=== PATIENT | female | born 1950 | race Caucasian/White ===

== ENCOUNTER 2017-06-18 12:04 | Observation (INO) | payer MEDICARE, MEDICAID ==
[~2017-06-18] VITALS: Ht 154.9 cm; Wt 78.4 kg
[2017-06-18] MEDS ORDERED: LANS30TA6 PO (12:58)
[2017-06-18] MEDS ORDERED: GABA300C10 PO (12:58)
[2017-06-18] MEDS ORDERED: ATOR-2 PO (12:58)
[2017-06-18] MEDS ORDERED: EMPA10TA PO (12:58)
[2017-06-18] MEDS ORDERED: INSU100V8 SQ (12:58)
[2017-06-18] MEDS ORDERED: LOSA50TA6 PO (12:58)
[2017-06-18] MEDS ORDERED: TRAM100T2 PO (12:58)
[2017-06-18 13:10] VITALS: BP 115/65
[2017-06-18 13:27] LABS: BASOPHILS # (AUTO) 0.03 x10^3/uL (0-0.1); BASOPHILS % (AUTO) 0 % (0-1); EOSINOPHILS # (AUTO) 0.08 x10^3/uL (0-0.4); EOSINOPHILS % (AUTO) 1 % (1-7); LYMPHOCYTES # (AUTO) 2.14 x10^3/uL (1-3.4); LYMPHOCYTES % (AUTO) 20 % (22-44); MD NO; MEAN CORPUSCULAR HEMOGLOBIN 30.8 pg (27.0-34.8); MEAN CORPUSCULAR HGB CONC 33.5 g/dL (32.4-35.8); MEAN PLATELET VOLUME 8.6 fL (7.4-10.4); MONOCYTES % (AUTO) 5 % (2-9); NEUTROPHILS # (AUTO) 7.76 x10^3/uL (1.8-6.8); NEUTROPHILS % (AUTO) 74 % (42-75); PLATELET COUNT 337 x10^3/uL (130-400); RED BLOOD COUNT 4.59 x10^6/uL (3.82-5.3); RED CELL DISTRIBUTION WIDTH 12.8 % (9.6-15.2)
[2017-06-18] MEDS ORDERED: SODIUM CHLORIDE 0.9% 1,000 ML IV ONE (13:30)
[2017-06-18 13:36] LABS: ANION GAP 9 mmol/L (5-15); CALCIUM 9.2 mg/dL (8.5-10.1); CHLORIDE 107 mmol/L (98-107); CREATININE 1.21 mg/dL (0.55-1.02)
[2017-06-18] MEDS ORDERED: VISIPAQUE 270 MG/ML, 150ML BOTTLE ONE ×2 (13:51→14:00)
[2017-06-18 13:53] LABS: INTERNATIONAL NORMALIZED RATIO 0.94 (0.93-1.1); PROTHROMBIN TIME 9.8 Seconds (9.6-11.5)
[2017-06-18] MEDS ORDERED: HEPARIN 1,000 UNITS/ML, 10ML ONE ×2 (14:46→16:51)
[2017-06-18] MEDS ORDERED: FENTANYL PF 100 MCG/2ML ONE ×2 (14:46)
[2017-06-18] MEDS ORDERED: MIDAZOLAM 1 MG/ML, 5ML ONE (14:46)
[2017-06-18] MEDS ORDERED: NITROGLYCERIN 5 MG/ML, 10ML ONE (14:48)
[2017-06-18] MEDS ORDERED: LIDOCAINE 2%, 20ML ONE (14:48)
[2017-06-18] MEDS ORDERED: DIPHENHYDRAMINE 50 MG/ML, 1ML ONE (17:04)
[2017-06-18] MEDS ORDERED: CLOPIDOGREL 300 MG TABLET ONE (17:37)
[2017-06-18] MEDS ORDERED: PLEASE ENTER ALLERGIES MC SCH ×2 (19:00→20:30)
[2017-06-18 19:25] VITALS: BP 129/70
[2017-06-18] MEDS ORDERED: morphine SULFATE 10 MG/ML, 1ML IVPush PRN (20:30)
[2017-06-18] MEDS ORDERED: ONDANSETRON 2MG/ML, 2ML IVPush PRN (20:30)
[2017-06-18] MEDS ORDERED: ACETAMINOPHEN 325 MG TABLET PO PRN (21:00)
[2017-06-18] MEDS ORDERED: ZOLPIDEM 5MG TABLET PO PRN (21:00)
[2017-06-18] MEDS ORDERED: ATORVASTATIN 80 MG TABLET PO SCH (21:00)
[2017-06-18] MEDS: SODIUM CHLORIDE 0.9% 1,000 ML IV SCH (21:51)
[2017-06-18] MEDS: GABAPENTIN 300 MG CAPSULE PO SCH (23:11)
[2017-06-19 00:30] VITALS: BP 126/75
[2017-06-19 04:26] VITALS: BP 108/50
[2017-06-19] MEDS ORDERED: ASPIRIN 81 MG TABLET EC PO SCH (06:00)
[2017-06-19] MEDS ORDERED: PANTOPROZOLE 40MG TABLET PO SCH (07:30)
[2017-06-19] MEDS: GABAPENTIN 300 MG CAPSULE PO SCH (07:42)
[2017-06-19] MEDS: SODIUM CHLORIDE 0.9% 1,000 ML IV SCH (07:42)
[2017-06-19] MEDS ORDERED: EMPAGLIFLOZIN 10 MG HOMEMEDPO SCH (08:00)
[2017-06-19] MEDS ORDERED: LOSARTAN 50MG TABLET PO SCH (09:00)
[2017-06-19] MEDS ORDERED: CLOPIDOGREL 75 MG TABLET PO SCH (09:00)
[2017-06-19 09:06] VITALS: BP 130/77
[2017-06-19] MEDS ORDERED: CLOP75TA PO (10:52)
[2017-06-19 10:56] VITALS: BP 124/68
[2017-06-19] MEDS ORDERED: INSULIN DETEMIR 100 UNITS/ML, PEN SQ-INSULIN SCH (21:00)
== END 2017-06-19 11:12 | disposition home or self-care (01) ==
LOC: OUT 12:04 → 4NOR 18:23 → OUT 22:37 → DCLOUNGE 06-19 10:33
PROVIDERS: ADMIT Internal Medicine Interventional Cardiology; ATTEND Internal Medicine Interventional Cardiology
DX: I74.3 Embolism and thrombosis of arteries of the lower extremities (principal); I25.10 Atherosclerotic heart disease of native coronary artery without angina pectoris; E78.5 Hyperlipidemia, unspecified; E11.9 Type 2 diabetes mellitus without complications; I73.9 Peripheral vascular disease, unspecified; Z87.891 Personal history of nicotine dependence
CPT/HCPCS: 36415; 37221; 37225; 75630; 80048; 85025; 85347; 85610; 99156; 99157; C1714; C1725; C1760; C1769; C1876; C1884; C1894; C2623; G0378; J1200; J1644; J2250; J3010; J3490; J7030; Q9966; 37226

== ENCOUNTER 2017-10-28 09:13 | Inpatient (IN) | payer MEDICARE, MEDICAID ==
[~2017-10-28] VITALS: Ht 154.9 cm; Wt 82.6 kg
[~2017-10-28 09:13] MED LIST: ATOR-2 PO; CLOP75TA PO; EMPA10TA PO; GABA300C10 PO; INSU100V8 SQ; LANS30TA6 PO; LOSA50TA6 PO; TRAM100T33 PO
[2017-10-28 10:24] VITALS: BP 180/89
[2017-10-28] MEDS ORDERED: ESOM20CA57 PO (10:33)
[2017-10-28 11:29] LABS: ALBUMIN 3.3 g/dL (3.4-5.0); CALCIUM 8.4 mg/dL (8.5-10.1)
[2017-10-28] MEDS ORDERED: CHLORHEXIDINE 15 ML BOTTLE MM SCH (11:30)
[2017-10-28] MEDS ORDERED: DO NOT GIVE MC SCH (11:30)
[2017-10-28] MEDS ORDERED: INSULIN LISPRO 100 UNITS/ML, PEN SQ-INSULIN SCH (11:30)
[2017-10-28] MEDS ORDERED: DO NOT GIVE XX SCH (11:30)
[2017-10-28 11:31] LABS: ALANINE AMINOTRANSFERASE 26 U/L (12-78); BILIRUBIN,TOTAL 0.4 mg/dL (0.2-1.0); CREATININE 0.96 mg/dL (0.55-1.02)
[2017-10-28] MEDS ORDERED: ASPI81TA50 PO (11:49)
[2017-10-28] MEDS ORDERED: CARV6.25 PO (11:49)
[2017-10-28 11:55] LABS: BASOPHILS # (AUTO) 0.08 x10^3/uL (0-0.1); BASOPHILS % (AUTO) 1 % (0-1); EOSINOPHILS # (AUTO) 0.17 x10^3/uL (0-0.4); EOSINOPHILS % (AUTO) 2 % (1-7); LYMPHOCYTES # (AUTO) 2.93 x10^3/uL (1-3.4); LYMPHOCYTES % (AUTO) 29 % (22-44); MD NO; MEAN CORPUSCULAR HEMOGLOBIN 30.2 pg (27.0-34.8); MEAN CORPUSCULAR HGB CONC 33.5 g/dL (32.4-35.8); MEAN CORPUSCULAR VOLUME 90.4 fL (80-100); MEAN PLATELET VOLUME 8.6 fL (7.4-10.4); MONOCYTES # (AUTO) 0.56 x10^3/uL (0.2-0.8); MONOCYTES % (AUTO) 6 % (2-9); NEUTROPHILS # (AUTO) 6.44 x10^3/uL (1.8-6.8); NEUTROPHILS % (AUTO) 63 % (42-75); PLATELET COUNT 260 x10^3/uL (130-400); RED BLOOD COUNT 4.48 x10^6/uL (3.82-5.3); RED CELL DISTRIBUTION WIDTH 13.6 % (9.6-15.2)
[2017-10-28 12:03] LABS: ALKALINE PHOSPHATASE 129 U/L (45-117); ANION GAP 10 mmol/L (5-15); CHLORIDE 108 mmol/L (98-107)
[2017-10-28 12:04] LABS: INTERNATIONAL NORMALIZED RATIO 0.93 (0.93-1.1); PROTHROMBIN TIME 9.7 Seconds (9.6-11.5)
[2017-10-28 12:36] LABS: HEMOGLOBIN A1C 8.9 % (4.2-6.3)
[2017-10-28] MEDS ORDERED: HEPARIN 25,000 UNITS/500ML PMX 500 ML IV PRN ×2 (14:00→14:30)
[2017-10-28] MEDS ORDERED: HEPARIN 5,000 UNITS/ML, 1ML IV PRN (14:30)
[2017-10-28] MEDS ORDERED: HEPARIN 5,000 UNITS/ML, 1ML IV ONE (14:30)
[2017-10-28 14:49] LABS: MICROSCOPIC INDICATED
[2017-10-28] MEDS: GABAPENTIN 300 MG CAPSULE PO SCH ×2 (15:15→19:56)
[2017-10-28] MEDS: ATORVASTATIN 80 MG TABLET PO SCH (19:57)
[2017-10-28] MEDS ORDERED: CARVEDILOL 6.25 MG TABLET PO SCH (21:00)
[2017-10-28] MEDS ORDERED: SULFAMETH./TRIMETHOPRIM DS 800MG/160MG TABLET PO SCH (21:00)
[2017-10-28] MEDS ORDERED: SODIUM CHLORIDE FLUSH 10ML SYR IVF SCH (21:00)
[2017-10-28 21:14] VITALS: BP 157/75
[2017-10-28] MEDS: MUPIROCIN OINT 2%, 22GM TP SCH (21:17)
[2017-10-29] MEDS ORDERED: ALBUMIN HUMAN 5% 500 ML IV PRN (01:30)
[2017-10-29 03:49] VITALS: BP 124/60
[2017-10-29 03:54] VITALS: BP 116/68
[2017-10-29] MEDS: MUPIROCIN OINT 2%, 22GM TP SCH (04:47)
[2017-10-29] MEDS ORDERED: METOPROLOL TARTRATE 25 MG TABLET PO ONE (05:00)
[2017-10-29] MEDS ORDERED: VANCOMYCIN 1,000 MG in SODIUM CHLORIDE 0.9% 100 ML IVPB ONE (06:00)
[2017-10-29] MEDS ORDERED: SUFentanil 50 MCG/ML, 5ML ONE (07:12)
[2017-10-29] MEDS ORDERED: MIDAZOLAM 10MG/2 ML ONE ×2 (07:12)
[2017-10-29] MEDS ORDERED: PAPAVERINE 30 MG/ML, 2ML ONE ×2 (07:17→07:26)
[2017-10-29] MEDS ORDERED: HEPARIN 1,000 UNITS/ML, 10ML ONE (07:17)
[2017-10-29] MEDS ORDERED: EPINEPHRINE 2 MG in SODIUM CHLORIDE 0.9% 248 ML IV SCH (07:30)
[2017-10-29] MEDS ORDERED: PHENYLEPHRINE 10 MG in SODIUM CHLORIDE 0.9% 249 ML IV PRN ×2 (07:30→11:30)
[2017-10-29] MEDS: PANTOPROZOLE 40MG TABLET PO SCH (07:30)
[2017-10-29] MEDS ORDERED: CEFUROXIME 1.5 GM in SODIUM CHLORIDE 0.9% 50 ML IVPB PRN (07:30)
[2017-10-29] MEDS ORDERED: DEXMEDETOMIDINE 200 MCG in SODIUM CHLORIDE 0.9% 48 ML IV SCH (07:30)
[2017-10-29] MEDS ORDERED: REGULAR INSULIN 62.5 UNITS in SODIUM CHLORIDE 0.9% 249.375 ML IV PRN ×2 (07:30→11:30)
[2017-10-29] MEDS ORDERED: MANNITOL PMX 20% 500 ML IVPB PRN (07:30)
[2017-10-29] MEDS ORDERED: POTASSIUM CHLORIDE 80 MEQ, SODIUM BICARBONATE 8.4% 10 MEQ, MAGNESIUM SULFATE 0.5 GM, LI... IV PRN (07:30)
[2017-10-29] MEDS ORDERED: LOSARTAN 50MG TABLET PO SCH (09:00)
[2017-10-29] MEDS: DOCUSATE 100 MG CAPSULE PO SCH ×2 (09:00→19:55)
[2017-10-29] MEDS ORDERED: PAPAVERINE 30 MG/ML, 2ML IVPush ONE (09:25)
[2017-10-29] MEDS ORDERED: HEPARIN 1,000 UNITS/ML, 10ML IV ONE (09:32)
[2017-10-29] MEDS ORDERED: ROCURONIUM 10MG/ML,5ML ONE ×2 (10:32)
[2017-10-29] MEDS ORDERED: PROPOFOL 10 MG/ML, 20ML ONE ×2 (10:32)
[2017-10-29] MEDS ORDERED: AMINOCAPROIC ACID 250 MG/ML, 20ML ONE ×2 (10:32)
[2017-10-29] MEDS ORDERED: PROTAMINE SULFATE 10 MG/ML, 25ML ONE ×2 (10:32)
[2017-10-29] MEDS ORDERED: CALCIUM CHLORIDE 10%, 10ML SYR ONE (11:08)
[2017-10-29] MEDS ORDERED: ALBUTEROL HFA 90 MCG/SPRAY ONE (11:21)
[2017-10-29] MEDS ORDERED: MIDAZOLAM 1 MG/ML, 5ML IVPush PRN (11:30)
[2017-10-29] MEDS ORDERED: ONDANSETRON 2MG/ML, 2ML IVPush PRN (11:30)
[2017-10-29] MEDS: KSCALE TO 4.5 IV SCH ×3 (11:30→23:30)
[2017-10-29] MEDS ORDERED: DEXTROSE 50%, 50ML SYRINGE IVPush PRN (11:30)
[2017-10-29] MEDS ORDERED: GLUCAGON 1 MG IM PRN (11:30)
[2017-10-29] MEDS ORDERED: INSULIN REGULAR 100 UNITS/ML, 3ML VIAL IVPush PRN (11:30)
[2017-10-29] MEDS ORDERED: BISACODYL 5 MG EC TABLET PO PRN (11:30)
[2017-10-29] MEDS ORDERED: LACTATED RINGERS 1,000 ML IV PRN (11:30)
[2017-10-29] MEDS ORDERED: DEXTROSE 4 GM TAB.CHEW PO PRN (11:30)
[2017-10-29] MEDS ORDERED: DOBUTAMINE 250 MG in SODIUM CHLORIDE 0.9% 230 ML IV PRN (11:30)
[2017-10-29] MEDS ORDERED: SODIUM CHLORIDE 0.9% 1,000 ML IV PRN (11:30)
[2017-10-29] MEDS ORDERED: NITROGLYCERIN/D5W PMX 250 ML IV PRN (11:30)
[2017-10-29] MEDS ORDERED: EPINEPHRINE 2 MG in SODIUM CHLORIDE 0.9% 248 ML IV PRN (11:30)
[2017-10-29] MEDS ORDERED: DEXMEDETOMIDINE 200 MCG in SODIUM CHLORIDE 0.9% 48 ML IV PRN (11:30)
[2017-10-29] MEDS ORDERED: ACETAMINOPHEN 650 MG SUPP PR PRN (11:30)
[2017-10-29] MEDS ORDERED: SODIUM BICARB 8.4%, 50ML SYRINGE IV PRN (11:30)
[2017-10-29] MEDS ORDERED: ACETAMINOPHEN 325 MG TABLET PO PRN (11:30)
[2017-10-29] MEDS ORDERED: PROCHLORPERAZINE 5 MG/ML, 2ML IVPush PRN (11:30)
[2017-10-29] MEDS ORDERED: BISACODYL 10 MG SUPP PR PRN (11:30)
[2017-10-29] MEDS ORDERED: VASOPRESSIN 50 UNIT in SODIUM CHLORIDE 0.9% 250 ML IV PRN (11:30)
[2017-10-29] MEDS ORDERED: HEPARIN 1,000 UNITS/ML, 30ML ONE (11:37)
[2017-10-29] MEDS ORDERED: SODIUM BICARB 8.4%, 50ML SYRINGE ONE (11:37)
[2017-10-29] MEDS ORDERED: ALBUMIN HUMAN 25% 50 ML ONE (11:37)
[2017-10-29] MEDS ORDERED: methylPREDNISolone SOD SUCC 125 MG/2 ML ONE (11:37)
[2017-10-29] MEDS ORDERED: LIDOCAINE 2% 100MG/5ML SYRINGE ONE (11:37)
[2017-10-29] MEDS ORDERED: SODIUM BICARBONATE 1 MEQ/ML, 50ML VIAL ONE (11:37)
[2017-10-29] MEDS: MAGNESIUM SULFATE 1 GM in SODIUM CHLORIDE 0.9% 50 ML IVPB SCH (12:25)
[2017-10-29 12:27] LABS: GLUCOSE BY BLOOD GAS ANALYZER 121 mg/dL (70-110); HEMOGLOBIN BY BLOOD GAS ANALYZ 14.6 g/dL (14.0-18.0); POTASSIUM BY BLOOD GAS ANALYZR 3.4 mmol/L (3.6-5.5)
[2017-10-29] MEDS ORDERED: POTASSIUM CHLORIDE 30 MEQ in SODIUM CHLORIDE 0.9% 100 ML IV ONE (13:00)
[2017-10-29] MEDS ORDERED: ALBUMIN HUMAN 5% 250 ML IV STA (13:16)
[2017-10-29] MEDS: HYDROmorphone 1 MG/ML, 1ML IVPush PRN ×2 (15:20→15:36)
[2017-10-29] MEDS ORDERED: HYDROmorphone 2 MG/ML, 1ML ONE ×2 (15:25→15:32)
[2017-10-29] MEDS: INSULIN LISPRO 100 UNITS/ML, PEN SQ-INSULIN SCH ×2 (16:00→21:00)
[2017-10-29] MEDS ORDERED: HYDROmorphone 2 MG/ML, 1ML IVPush PRN (16:00)
[2017-10-29] MEDS ORDERED: RACEPINEPHRINE INH 2.25%, 0.5ML ONE (16:33)
[2017-10-29] MEDS ORDERED: FENTANYL PF 100 MCG/2ML ONE (17:03)
[2017-10-29] MEDS ORDERED: ALBUTEROL/IPRATROPIUM 2.5MG/0.5MG, 3 ML NPPB PRN (17:30)
[2017-10-29] MEDS ORDERED: FENTANYL PF 100 MCG/2ML IVPush ONE ×2 (17:30)
[2017-10-29] MEDS: VANCOMYCIN 1,000 MG in SODIUM CHLORIDE 0.9% 250 ML IVPB SCH (18:17)
[2017-10-29] MEDS: FENTANYL PF 100 MCG/2ML IVPush PRN (18:31)
[2017-10-29] MEDS: SODIUM CHLORIDE FLUSH 10ML SYR IVF SCH (19:55)
[2017-10-29] MEDS: MUPIROCIN OINT 2%, 22GM NAS SCH (19:55)
[2017-10-29] MEDS: ATORVASTATIN 80 MG TABLET PO SCH (19:55)
[2017-10-29] MEDS: HYDROcodone/APAP 5/325 TABLET PO PRN ×2 (19:55→23:44)
[2017-10-30] MEDS: FENTANYL PF 100 MCG/2ML IVPush PRN (01:49)
[2017-10-30 05:02] LABS: INTERNATIONAL NORMALIZED RATIO 0.93 (0.93-1.1); PROTHROMBIN TIME 9.7 Seconds (9.6-11.5)
[2017-10-30 05:05] LABS: ALBUMIN 2.8 g/dL (3.4-5.0); ANION GAP 6 mmol/L (5-15); CALCIUM 8.1 mg/dL (8.5-10.1); CHLORIDE 113 mmol/L (98-107); CREATININE 0.91 mg/dL (0.55-1.02)
[2017-10-30 05:13] LABS: BASOPHILS % (AUTO) 0 % (0-1); EOSINOPHILS % (AUTO) 0 % (1-7); LYMPHOCYTES # (AUTO) 1.04 x10^3/uL (1-3.4); LYMPHOCYTES % (AUTO) 7 % (22-44); MD NO; MEAN CORPUSCULAR HEMOGLOBIN 30.2 pg (27.0-34.8); MEAN CORPUSCULAR HGB CONC 33.4 g/dL (32.4-35.8); MEAN CORPUSCULAR VOLUME 90.6 fL (80-100); MEAN PLATELET VOLUME 9.2 fL (7.4-10.4); MONOCYTES # (AUTO) 0.96 x10^3/uL (0.2-0.8); MONOCYTES % (AUTO) 7 % (2-9); NEUTROPHILS # (AUTO) 12.65 x10^3/uL (1.8-6.8); NEUTROPHILS % (AUTO) 86 % (42-75); PLATELET COUNT 171 x10^3/uL (130-400); RED BLOOD COUNT 4.45 x10^6/uL (3.82-5.3); RED CELL DISTRIBUTION WIDTH 14.8 % (9.6-15.2)
[2017-10-30] MEDS: KSCALE TO 4.5 IV SCH (05:30)
[2017-10-30] MEDS: INSULIN LISPRO 100 UNITS/ML, PEN SQ-INSULIN SCH ×6 (05:31→20:22)
[2017-10-30] MEDS: VANCOMYCIN 1,000 MG in SODIUM CHLORIDE 0.9% 250 ML IVPB SCH (06:23)
[2017-10-30] MEDS: HYDROcodone/APAP 5/325 TABLET PO PRN ×3 (07:50→22:27)
[2017-10-30] MEDS: MUPIROCIN OINT 2%, 22GM NAS SCH ×2 (07:50→20:23)
[2017-10-30] MEDS: ASPIRIN 81 MG TABLET EC PO SCH (07:51)
[2017-10-30] MEDS: DOCUSATE 100 MG CAPSULE PO SCH ×2 (07:51→20:23)
[2017-10-30] MEDS: SODIUM CHLORIDE FLUSH 10ML SYR IVF SCH ×3 (07:51→20:24)
[2017-10-30] MEDS: PANTOPROZOLE 40MG TABLET PO SCH (07:51)
[2017-10-30] MEDS: OXYcodone IR 5MG TABLET PO PRN ×5 (09:20→20:10)
[2017-10-30] MEDS ORDERED: CARVEDILOL 3.125 MG TABLET PO ONE (09:30)
[2017-10-30] MEDS ORDERED: MAGNESIUM HYDROXIDE 8%, 30ML UDC PO PRN (09:30)
[2017-10-30] MEDS ORDERED: CARVEDILOL 3.125 MG TABLET PO SCH (09:30)
[2017-10-30] MEDS: GABAPENTIN 300 MG CAPSULE PO SCH ×3 (09:36→20:23)
[2017-10-30] MEDS: CHLORHEXIDINE 15 ML BOTTLE MM SCH (11:44)
[2017-10-30] MEDS: MAGNESIUM SULFATE 1 GM in SODIUM CHLORIDE 0.9% 50 ML IVPB SCH (12:33)
[2017-10-30 13:29] VITALS: BP 95/70
[2017-10-30] MEDS ORDERED: METOPROLOL TARTRATE 25 MG TABLET PO SCH (18:00)
[2017-10-30 18:31] VITALS: BP 128/88
[2017-10-30] MEDS: ATORVASTATIN 40 MG TABLET PO SCH (20:23)
[2017-10-30] MEDS: CARVEDILOL 3.125 MG TABLET PO SCH (20:23)
[2017-10-31] MEDS: OXYcodone IR 5MG TABLET PO PRN ×6 (00:10→21:05)
[2017-10-31] MEDS: CHLORHEXIDINE 15 ML BOTTLE MM SCH ×3 (00:11→21:26)
[2017-10-31 00:17] VITALS: BP 155/86
[2017-10-31] MEDS: CARVEDILOL 3.125 MG TABLET PO SCH ×2 (06:28→17:26)
[2017-10-31] MEDS: INSULIN LISPRO 100 UNITS/ML, PEN SQ-INSULIN SCH ×4 (07:00→21:26)
[2017-10-31 07:42] LABS: MEAN CORPUSCULAR HEMOGLOBIN 30.5 pg (27.0-34.8); MEAN CORPUSCULAR HGB CONC 33.4 g/dL (32.4-35.8); MEAN CORPUSCULAR VOLUME 91.5 fL (80-100); MEAN PLATELET VOLUME 8.8 fL (7.4-10.4); PLATELET COUNT 167 x10^3/uL (130-400); RED BLOOD COUNT 4.72 x10^6/uL (3.82-5.3); RED CELL DISTRIBUTION WIDTH 14.6 % (9.6-15.2)
[2017-10-31 07:50] LABS: INTERNATIONAL NORMALIZED RATIO 0.96 (0.93-1.1)
[2017-10-31 07:54] LABS: ANION GAP 8 mmol/L (5-15); CALCIUM 8.4 mg/dL (8.5-10.1); CHLORIDE 106 mmol/L (98-107); CREATININE 0.79 mg/dL (0.55-1.02)
[2017-10-31 08:13] LABS: BASOPHILS # (AUTO) 0.05 x10^3/uL (0-0.1); BASOPHILS % (AUTO) 0 % (0-1); EOSINOPHILS # (AUTO) 0.02 x10^3/uL (0-0.4); EOSINOPHILS % (AUTO) 0 % (1-7); LYMPHOCYTES # (AUTO) 1.79 x10^3/uL (1-3.4); LYMPHOCYTES % (AUTO) 11 % (22-44); MD SCAN; MONOCYTES # (AUTO) 1.43 x10^3/uL (0.2-0.8); MONOCYTES % (AUTO) 9 % (2-9); NEUTROPHILS # (AUTO) 13.52 x10^3/uL (1.8-6.8); NEUTROPHILS % (AUTO) 80 % (42-75)
[2017-10-31] MEDS: HYDROcodone/APAP 5/325 TABLET PO PRN (09:27)
[2017-10-31] MEDS: FUROSEMIDE 20 MG/2 ML IV SCH ×2 (09:27→16:35)
[2017-10-31] MEDS: GABAPENTIN 300 MG CAPSULE PO SCH ×3 (09:27→21:05)
[2017-10-31] MEDS: POTASSIUM CHLORIDE 10 MEQ TABLET.ER PO SCH ×2 (09:27→16:32)
[2017-10-31] MEDS: PANTOPROZOLE 40MG TABLET PO SCH (09:28)
[2017-10-31] MEDS: ASPIRIN 81 MG TABLET EC PO SCH (09:28)
[2017-10-31] MEDS: DOCUSATE 100 MG CAPSULE PO SCH ×2 (09:28→21:05)
[2017-10-31] MEDS: SODIUM CHLORIDE FLUSH 10ML SYR IVF SCH ×4 (09:28→21:26)
[2017-10-31] MEDS: ENOXAPARIN 40 MG/0.4 ML SQ SCH (09:29)
[2017-10-31] MEDS: MUPIROCIN OINT 2%, 22GM NAS SCH ×2 (10:32→21:25)
[2017-10-31 10:44] VITALS: BP 108/78
[2017-10-31] MEDS: MAGNESIUM SULFATE 1 GM in SODIUM CHLORIDE 0.9% 50 ML IVPB SCH (11:46)
[2017-10-31 13:03] VITALS: BP 107/63
[2017-10-31 18:55] VITALS: BP 113/72
[2017-10-31] MEDS: ATORVASTATIN 40 MG TABLET PO SCH (21:05)
[2017-10-31] MEDS: SULFAMETH./TRIMETHOPRIM DS 800MG/160MG TABLET PO SCH (21:05)
[2017-11-01] MEDS: OXYcodone IR 5MG TABLET PO PRN ×4 (00:08→12:24)
[2017-11-01 01:54] VITALS: BP 90/58
[2017-11-01 06:04] LABS: BASOPHILS # (AUTO) 0.15 x10^3/uL (0-0.1); BASOPHILS % (AUTO) 1 % (0-1); EOSINOPHILS # (AUTO) 0.12 x10^3/uL (0-0.4); EOSINOPHILS % (AUTO) 1 % (1-7); LYMPHOCYTES # (AUTO) 2.18 x10^3/uL (1-3.4); LYMPHOCYTES % (AUTO) 17 % (22-44); MD NO; MEAN CORPUSCULAR HEMOGLOBIN 30.5 pg (27.0-34.8); MEAN CORPUSCULAR HGB CONC 33.2 g/dL (32.4-35.8); MEAN CORPUSCULAR VOLUME 91.7 fL (80-100); MEAN PLATELET VOLUME 8.7 fL (7.4-10.4); MONOCYTES # (AUTO) 1.07 x10^3/uL (0.2-0.8); MONOCYTES % (AUTO) 9 % (2-9); NEUTROPHILS # (AUTO) 9.04 x10^3/uL (1.8-6.8); NEUTROPHILS % (AUTO) 72 % (42-75); PLATELET COUNT 167 x10^3/uL (130-400); RED BLOOD COUNT 4.27 x10^6/uL (3.82-5.3); RED CELL DISTRIBUTION WIDTH 14.2 % (9.6-15.2)
[2017-11-01 06:12] LABS: ANION GAP 9 mmol/L (5-15); CALCIUM 8.6 mg/dL (8.5-10.1); CHLORIDE 103 mmol/L (98-107); CREATININE 0.92 mg/dL (0.55-1.02)
[2017-11-01] MEDS: CARVEDILOL 3.125 MG TABLET PO SCH ×3 (06:34→21:15)
[2017-11-01 06:37] VITALS: BP 90/50
[2017-11-01 07:44] VITALS: BP 107/56
[2017-11-01] MEDS: SODIUM CHLORIDE FLUSH 10ML SYR IVF SCH ×4 (09:00→21:16)
[2017-11-01] MEDS: POTASSIUM CHLORIDE 10 MEQ TABLET.ER PO SCH ×2 (09:20→16:20)
[2017-11-01] MEDS: ASPIRIN 81 MG TABLET EC PO SCH (09:20)
[2017-11-01] MEDS: FUROSEMIDE 20 MG/2 ML IV SCH ×2 (09:20→16:21)
[2017-11-01] MEDS: GABAPENTIN 300 MG CAPSULE PO SCH ×3 (09:20→21:15)
[2017-11-01] MEDS: CLOPIDOGREL 75 MG TABLET PO SCH (09:20)
[2017-11-01] MEDS: PANTOPROZOLE 40MG TABLET PO SCH (09:21)
[2017-11-01] MEDS: DOCUSATE 100 MG CAPSULE PO SCH ×2 (09:21→21:14)
[2017-11-01] MEDS: ENOXAPARIN 40 MG/0.4 ML SQ SCH (09:21)
[2017-11-01] MEDS: INSULIN LISPRO 100 UNITS/ML, PEN SQ-INSULIN SCH ×4 (09:22→21:14)
[2017-11-01] MEDS: SULFAMETH./TRIMETHOPRIM DS 800MG/160MG TABLET PO SCH ×2 (10:15→21:15)
[2017-11-01] MEDS: MUPIROCIN OINT 2%, 22GM NAS SCH ×2 (10:15→21:13)
[2017-11-01 14:20] VITALS: BP 114/68
[2017-11-01 18:36] VITALS: BP_SYST 83; BP_SYST 95; BP_DIAS 54; BP_DIAS 60
[2017-11-01] MEDS: INSULIN GLARGINE 100 UNITS/ML, PEN SQ-INSULIN SCH (21:14)
[2017-11-01] MEDS: ATORVASTATIN 40 MG TABLET PO SCH (21:15)
[2017-11-02 01:44] VITALS: BP 94/55
[2017-11-02 05:35] LABS: ANION GAP 7 mmol/L (5-15); CALCIUM 8.1 mg/dL (8.5-10.1); CHLORIDE 104 mmol/L (98-107); CREATININE 1.25 mg/dL (0.55-1.02)
[2017-11-02 05:53] LABS: MEAN CORPUSCULAR HEMOGLOBIN 30.4 pg (27.0-34.8); MEAN CORPUSCULAR HGB CONC 33.3 g/dL (32.4-35.8); MEAN CORPUSCULAR VOLUME 91.2 fL (80-100); PLATELET COUNT 216 x10^3/uL (130-400); RED BLOOD COUNT 4.06 x10^6/uL (3.82-5.3); RED CELL DISTRIBUTION WIDTH 14.5 % (9.6-15.2)
[2017-11-02 06:31] LABS: BASOPHILS # (AUTO) 0.03 x10^3/uL (0-0.1); BASOPHILS % (AUTO) 0 % (0-1); EOSINOPHILS # (AUTO) 0.11 x10^3/uL (0-0.4); EOSINOPHILS % (AUTO) 1 % (1-7); LYMPHOCYTES # (AUTO) 3.05 x10^3/uL (1-3.4); LYMPHOCYTES % (AUTO) 22 % (22-44); MD SCAN; MONOCYTES # (AUTO) 1.47 x10^3/uL (0.2-0.8); MONOCYTES % (AUTO) 11 % (2-9); NEUTROPHILS # (AUTO) 8.96 x10^3/uL (1.8-6.8); NEUTROPHILS % (AUTO) 66 % (42-75)
[2017-11-02 06:55] VITALS: BP 97/63
[2017-11-02] MEDS: INSULIN LISPRO 100 UNITS/ML, PEN SQ-INSULIN SCH ×4 (07:00→20:57)
[2017-11-02] MEDS: CARVEDILOL 3.125 MG TABLET PO SCH ×2 (07:59→17:02)
[2017-11-02] MEDS: CLOPIDOGREL 75 MG TABLET PO SCH (07:59)
[2017-11-02] MEDS: PANTOPROZOLE 40MG TABLET PO SCH (07:59)
[2017-11-02] MEDS: ASPIRIN 81 MG TABLET EC PO SCH (07:59)
[2017-11-02] MEDS: DOCUSATE 100 MG CAPSULE PO SCH ×2 (07:59→20:56)
[2017-11-02] MEDS: GABAPENTIN 300 MG CAPSULE PO SCH ×3 (07:59→20:55)
[2017-11-02] MEDS: SULFAMETH./TRIMETHOPRIM DS 800MG/160MG TABLET PO SCH ×2 (08:00→20:57)
[2017-11-02] MEDS: SODIUM CHLORIDE FLUSH 10ML SYR IVF SCH ×4 (08:00→20:56)
[2017-11-02] MEDS: ENOXAPARIN 40 MG/0.4 ML SQ SCH (08:00)
[2017-11-02] MEDS: MUPIROCIN OINT 2%, 22GM NAS SCH ×2 (08:13→20:56)
[2017-11-02] MEDS: HYDROcodone/APAP 5/325 TABLET PO PRN ×2 (09:22→17:02)
[2017-11-02 12:49] VITALS: BP 116/65
[2017-11-02 18:43] VITALS: BP 94/61
[2017-11-02] MEDS: ATORVASTATIN 40 MG TABLET PO SCH (20:55)
[2017-11-02] MEDS: INSULIN GLARGINE 100 UNITS/ML, PEN SQ-INSULIN SCH (20:57)
[2017-11-03 00:05] VITALS: BP 92/44
[2017-11-03 05:10] LABS: ANION GAP 8 mmol/L (5-15); CALCIUM 8.2 mg/dL (8.5-10.1); CHLORIDE 103 mmol/L (98-107)
[2017-11-03 05:25] LABS: BASOPHILS # (AUTO) 0.03 x10^3/uL (0-0.1); BASOPHILS % (AUTO) 0 % (0-1); EOSINOPHILS # (AUTO) 0.09 x10^3/uL (0-0.4); EOSINOPHILS % (AUTO) 1 % (1-7); LYMPHOCYTES # (AUTO) 2.69 x10^3/uL (1-3.4); LYMPHOCYTES % (AUTO) 23 % (22-44); MD NO; MEAN CORPUSCULAR HEMOGLOBIN 30.7 pg (27.0-34.8); MEAN CORPUSCULAR HGB CONC 33.7 g/dL (32.4-35.8); MEAN PLATELET VOLUME 8.6 fL (7.4-10.4); MONOCYTES # (AUTO) 0.95 x10^3/uL (0.2-0.8); MONOCYTES % (AUTO) 8 % (2-9); NEUTROPHILS # (AUTO) 8.12 x10^3/uL (1.8-6.8); NEUTROPHILS % (AUTO) 68 % (42-75); PLATELET COUNT 265 x10^3/uL (130-400); RED BLOOD COUNT 3.99 x10^6/uL (3.82-5.3); RED CELL DISTRIBUTION WIDTH 14.3 % (9.6-15.2)
[2017-11-03 06:14] VITALS: BP 93/60
[2017-11-03] MEDS: CARVEDILOL 3.125 MG TABLET PO SCH (06:15)
[2017-11-03 06:53] VITALS: BP 110/69
[2017-11-03] MEDS: INSULIN LISPRO 100 UNITS/ML, PEN SQ-INSULIN SCH ×2 (07:00→11:00)
[2017-11-03] MEDS: GABAPENTIN 300 MG CAPSULE PO SCH (07:46)
[2017-11-03] MEDS: PANTOPROZOLE 40MG TABLET PO SCH (07:46)
[2017-11-03] MEDS: CLOPIDOGREL 75 MG TABLET PO SCH (07:46)
[2017-11-03] MEDS: DOCUSATE 100 MG CAPSULE PO SCH (07:46)
[2017-11-03] MEDS: ASPIRIN 81 MG TABLET EC PO SCH (07:47)
[2017-11-03] MEDS: SODIUM CHLORIDE FLUSH 10ML SYR IVF SCH ×2 (07:47→07:48)
[2017-11-03] MEDS: SULFAMETH./TRIMETHOPRIM DS 800MG/160MG TABLET PO SCH (07:47)
[2017-11-03] MEDS: MUPIROCIN OINT 2%, 22GM NAS SCH (07:47)
[2017-11-03] MEDS: HYDROcodone/APAP 5/325 TABLET PO PRN (07:47)
[2017-11-03] MEDS: ENOXAPARIN 40 MG/0.4 ML SQ SCH (07:48)
[2017-11-03] MEDS ORDERED: CARV3.1212 PO (10:17)
[2017-11-03] MEDS ORDERED: OXYC5TAB3 PO (10:17)
[2017-11-03] MEDS ORDERED: SULF-169 PO (10:17)
== END 2017-11-03 13:35 | disposition home health service (06) | DRG 235 ==
LOC: 5SO 09:13 → CCU 10-29 11:46 → 5SO 10-30 12:52 → DCLOUNGE 11-03 13:07
PROVIDERS: ADMIT Thoracic Surgery (Cardiothoracic Vascular Surgery); ATTEND Thoracic Surgery (Cardiothoracic Vascular Surgery)
PROC: 02100Z9 Bypass Coronary Artery, One Artery from Left Internal Mammary, Open Approach (ICD-10-PCS; principal; 2017-10-28)
PROC: 021109W Bypass Coronary Artery, Two Arteries from Aorta with Autologous Venous Tissue, Open Approach (ICD-10-PCS; 2017-10-28)
PROC: 5A1221Z Performance of Cardiac Output, Continuous (ICD-10-PCS; 2017-10-29)
PROC: 06BP4ZZ Excision of Right Saphenous Vein, Percutaneous Endoscopic Approach (ICD-10-PCS; 2017-10-29)
PROC: 30233N1 Transfusion of Nonautologous Red Blood Cells into Peripheral Vein, Percutaneous Approach (ICD-10-PCS; 2017-10-29)
DX: I25.119 Atherosclerotic heart disease of native coronary artery with unspecified angina pectoris (principal); J96.00 Acute respiratory failure, unspecified whether with hypoxia or hypercapnia; I50.31 Acute diastolic (congestive) heart failure; N39.0 Urinary tract infection, site not specified; E11.40 Type 2 diabetes mellitus with diabetic neuropathy, unspecified; E11.51 Type 2 diabetes mellitus with diabetic peripheral angiopathy without gangrene; E66.01 Morbid (severe) obesity due to excess calories; E78.00 Pure hypercholesterolemia, unspecified; E78.5 Hyperlipidemia, unspecified; I11.0 Hypertensive heart disease with heart failure; Z79.4 Long term (current) use of insulin; Z87.891 Personal history of nicotine dependence; Z89.429 Acquired absence of other toe(s), unspecified side; Z95.5 Presence of coronary angioplasty implant and graft; Z68.34 Body mass index [BMI] 34.0-34.9, adult
CPT/HCPCS: 36415; 36600; 71045; 71046; 80048; 80053; 81001; 82040; 82330; 82800; 82803; 82810; 82947; 82962; 83036; 83735; 84132; 84295; 85014; 85018; 85025; 85049; 85347; 85520; 85610; 85730; 86850; 86900; 86923; 87081; 93005; 93312; 93321; 93325; 93880; 93970; 94002; J0697; J1170; J1644; J1650; J1815; J2250; J2704; J2720; J3010; J3370; J3475; J3480; J3490; P9041; P9045; P9047; C1751; C1760; J0171; J1940; J2370; J2440; J2930; J7050; P9016

== ENCOUNTER 2021-03-15 14:38 | Emergency (ER) | payer MEDICARE, MEDICAID ==
[~2021-03-15] VITALS: Ht 154.9 cm; Wt 64.0 kg
[2021-03-15 18:25] VITALS: BP 198/147
== END 2021-03-15 20:00 | disposition home or self-care (01) ==
LOC: ED 19:04
DX: R10.84 Generalized abdominal pain (principal); N30.00 Acute cystitis without hematuria; I12.9 Hypertensive chronic kidney disease with stage 1 through stage 4 chronic kidney disease, or unspecified chronic kidney disease; N18.9 Chronic kidney disease, unspecified; R94.4 Abnormal results of kidney function studies; I25.10 Atherosclerotic heart disease of native coronary artery without angina pectoris; Z95.1 Presence of aortocoronary bypass graft
CPT/HCPCS: 36415; 74177; 80053; 81001; 82010; 82800; 83690; 84484; 85025; 87077; 87086; 87186; 93005; 96361; 96365; 96375; 99285; J0696; J2405; J7030; Q9967